=== PATIENT | female | born 1965 | race Hispanic/Latino ===

== ENCOUNTER 2020-08-17 12:11 | Outpatient (CLI) | payer OTHER, SELFPAY ==
--- NOTE | 2020-08-17 13:18 | ECG_ITS ---
Measurements Intervals [place] Rate: 71 P: 56 MI: 178 QRS: 12 QRSD: 76 T: 19 QT: 383 QTc: 418 Interpretive Statements SINUS RHYTHM WITH SINUS ARRHYTHMIA DELAYED PRECORDIAL R/S TRANSITION BORDERLINE ST-T WAVE ABNORMALITY- INFERIOR LEADS BORDERLINE ECG Electronically Signed On 08-17-2020 13:44:23 [employer] by Nitin Wood D.O.
[2020-08-17 14:20] LABS: Basophils Percent Auto 0.5 % (0.2-1.2); Eosinophils Absolute Auto 0.1 K/mm3 (0-0.3); Eosinophils Percent Auto 1.2 % (0-4.4); Hemoglobin 15.2 g/dL (12.0-15.0); Immature Granulocyte Absolute 0.02 K/mm3 (0.00-0.031); Immature Granulocyte Percent A 0.3 % (0-0.5); Lymphocytes Absolute Auto 3.17 K/mm3 (0.9-3.2); Lymphocytes Percent Auto 41.5 % (18.3-44.2); Mean Corpuscular HGB Conc 33.8 g/dl (32-36); Mean Corpuscular Hemoglobin 31.3 pg (26-34); Mean Corpuscular Volume 92.6 fl (80-100); Mean Platelet Volume 9.3 fl (7.4-10.4); Monocytes Absolute Auto 0.5 K/mm3 (0.1-0.6); Monocytes Percent Auto 6.2 % (2.6-8.5); Neutrophils Absolute Auto 3.9 K/mm3 (1.3-6.7); Neutrophils Percent Auto 50.3 % (45.5-73.1); Platelet Count Result 326 k/mm3 (150-375); Red Blood Count 4.86 M/mm3 (4.2-5.4); Red Cell Distribution Width 12.4 % (11.5-14.5); White Blood Count 7.6 K/mm3 (4.5-10.0)
[2020-08-17 14:26] LABS: INR 0.9; Partial Thromboplastin Time 24.8 SECONDS (22.3-36.8); Prothrombin Time 13.1 Seconds (11.1-14.7)
[2020-08-17 14:36] LABS: Alanine Aminotransferase 17 U/L (4-35); Albumin Level 4.6 g/dL (3.5-5.1); Alkaline Phosphatase 90 U/L (38-126); Anion Gap 9 mmol/L (8-16); Aspartate Amino Transferase 28 U/L (14-36); Bilirubin,Total 0.4 mg/dL (0.2-1.3); Blood Urea Nitrogen 19 mg/dL (7-17); Calcium 10.1 mg/dL (8.4-10.2); Carbon Dioxide 31 mmol/L (22-30); Chloride 97 mmol/L (98-107); Estimated Glomerular Filt Rate > 60; Glucose 108 mg/dL (65-105); Potassium 3.8 mmol/L (3.4-5.0); Sodium 137 mmol/L (137-145)
== END 2020-08-17 12:12 | disposition home or self-care (01) ==
PROVIDERS: PCP Family Medicine; Visit Provider Urology
DX: Z01.812 Encounter for preprocedural laboratory examination (principal); I10 Essential (primary) hypertension
CPT/HCPCS: 36415; 80053; 85025; 85610; 85730; 86850; 86900; 86901; 87086; 93005

== ENCOUNTER 2020-10-31 09:24 | Outpatient (CLI) | payer BC, SELFPAY ==
[2020-10-31 09:47] LABS: Basophils Percent Auto 0.5 % (0.2-1.2); Eosinophils Absolute Auto 0.1 K/mm3 (0-0.3); Hematocrit 44.7 % (37.0-47.0); Hemoglobin 14.6 g/dL (12.0-15.0); Immature Granulocyte Absolute 0.03 K/mm3 (0.00-0.031); Immature Granulocyte Percent A 0.5 % (0-0.5); Lymphocytes Absolute Auto 2.87 K/mm3 (0.9-3.2); Lymphocytes Percent Auto 44.9 % (18.3-44.2); Mean Corpuscular HGB Conc 32.7 g/dl (32-36); Mean Corpuscular Hemoglobin 31.3 pg (26-34); Mean Corpuscular Volume 95.7 fl (80-100); Mean Platelet Volume 9.2 fl (7.4-10.4); Monocytes Absolute Auto 0.5 K/mm3 (0.1-0.6); Monocytes Percent Auto 7.5 % (2.6-8.5); Neutrophils Absolute Auto 2.9 K/mm3 (1.3-6.7); Neutrophils Percent Auto 44.6 % (45.5-73.1); Platelet Count Result 273 k/mm3 (150-375); Red Blood Count 4.67 M/mm3 (4.2-5.4); Red Cell Distribution Width 12.5 % (11.5-14.5); White Blood Count 6.4 K/mm3 (4.5-10.0)
[2020-10-31 09:57] LABS: INR 0.9
[2020-10-31 09:58] LABS: Partial Thromboplastin Time 24.9 SECONDS (22.3-36.8)
[2020-10-31 09:59] LABS: Alanine Aminotransferase 20 U/L (4-35); Albumin Level 4.4 g/dL (3.5-5.1); Alkaline Phosphatase 80 U/L (38-126); Anion Gap 5 mmol/L (8-16); Aspartate Amino Transferase 24 U/L (14-36); Bilirubin,Total 0.4 mg/dL (0.2-1.3); Blood Urea Nitrogen 23 mg/dL (7-17); Calcium 9.7 mg/dL (8.4-10.2); Carbon Dioxide 30 mmol/L (22-30); Chloride 101 mmol/L (98-107); Estimated Glomerular Filt Rate > 60; Glucose 98 mg/dL (65-105); Potassium 3.7 mmol/L (3.4-5.0); Sodium 136 mmol/L (137-145)
== END 2020-10-31 09:25 | disposition home or self-care (01) ==
PROVIDERS: PCP Family Medicine; Visit Provider Urology
DX: N81.4 Uterovaginal prolapse, unspecified (principal); Z01.818 Encounter for other preprocedural examination
CPT/HCPCS: 36415; 80053; 85025; 85610; 85730; 86850; 86900; 86901; 87086; 87088

== ENCOUNTER → 2020-11-04 00:07 | Outpatient (CLI) | payer BC, SELFPAY ==
[2020-11-04 17:44] LABS: SARS-CoV-2 RNA PCR Negative
== END ==
PROVIDERS: PCP Family Medicine; Visit Provider Urology
DX: Z01.812 Encounter for preprocedural laboratory examination (principal); Z20.822 Contact with and (suspected) exposure to COVID-19
CPT/HCPCS: C9803; U0003; U0005

== ENCOUNTER 2020-11-07 01:02 | Day surgery (SDC) | payer BC, SELFPAY ==
[2020-08-17 12:33] VITALS: BMI 27.8
[2020-08-17 13:17] VITALS: BP 133/84; PULSE 81; RESP 16; TEMP 37.2; O2SAT 99
[2020-10-28 09:02] VITALS: BMI 27.6
--- NOTE | 2020-10-28 09:02 | PC.NURSE ---
Pt states no change in health history since interview. Vitamin C added to home medications. New instructions given, including times, medications, Covid testing, and pre-op labs. Pt denies questions at this time.
--- NOTE | 2020-11-04 17:55 | P.HP_ITS ---
H&P: HPI History of Present Illness Date/Time: 11/04/20 17:55 55yo with uterine prolapse and occult TIANNA Chief Complaint: POP/TIANNA Review of Systems Review of Systems: All systems reviewed & are unremarkable except as noted in HPI and below [facility] Family History Family History (Updated 11/04/20 @ 17:[address] MD) Other Heart disease Social History Social History Smoking status: Never smoker Alcohol intake: former Substance use: never Additional living arrangements comments: Spiritual care concerns: No Meds Home Medications and Allergies Home Medications Medication Instructions Recorded Confirmed Type hydrochlorothiazide 25 mg PO QAM 08/17/20 10/28/20 History lisinopril 10 mg PO QAM 08/17/20 10/28/20 History simvastatin 20 mg PO HS 08/17/20 10/28/20 History ascorbic acid (vitamin C) [Vitamin 300 mg PO DAILY 10/28/20 10/28/20 History C] Allergies Allergy/AdvReac Type Severity Reaction Status Date / Time No Known Allergies Allergy Verified 10/28/20 08:59 Exam Const: General: cooperative and healthy appearing HENMT: Head: normal to inspection Ears: hearing grossly normal bilaterally Eyes: General: appearance normal, both eyes and all related structures Resp: Effort & Inspection: normal respiratory effort and able to speak in complete sentences : Bimanual Exam- Adnexa, other: vaginal apex descent (+5) Skin: General skin exam: normal color Neuro: General: patient oriented x3 Assessment and Plan Assessment and plan (1) Uterine prolapse: Code(s): N81.4 - Uterovaginal prolapse, unspecified Status: Acute Assessment and Plan: robotic Sacral Colpopey (2) TIANNA (stress urinary incontinence, female): Code(s): N39.3 - Stress incontinence (female) (male) Status: Acute Assessment and Plan: urethral sling
[2020-11-07] VITALS (13 sets, daily range): BP systolic 99–142; BP diastolic 60–87; PULSE 58–86; RESP 12–20; TEMP 36.3–37; O2SAT 97–100
--- NOTE | 2020-11-07 07:20 | WPDHPUPDATE1 ---
History and Physical Update Update Date/Time: 11/07/20 07:20 History and Physical has been reviewed, including an updated exam of the patient. There are NO changes in the patient's condition. Risks, benefits, and alternatives have been discussed and questions answered. Patient agrees to proceed with procedure.
[2020-11-07] MEDS: LACTATED RINGERS 1,000 ML 30 ML IV CONT ×3 (10:06→14:51)
[2020-11-07] MEDS: KETOROLAC 15 MG/ML VIAL (*BKC) IV PUSH (10:06)
[2020-11-07] MEDS: ACETAMINOPHEN 500 MG TABLET 1000 MG PO (10:06)
--- NOTE | 2020-11-07 10:29 | WPDANESEPPF ---
Anes - Initial Pre Proc Eval Procedure: Operation Date: 11/07/20 11:00 Proposed Procedures p Robotic Sacrocolpopexy - Moises Lane MD s Urethral Sling - Moises Lane MD s Laparoscopic Supracervical Hysterectomy With Bilateral Salpingo-Oophorectomy - Haily Noriega MD Date/Time: 11/07/20 10:29 Surgeon: Moises Lane MD Pre Op Diagnosis: Cystocele,Complete UterineVaginal Prolapse, Stress Patient Data Age: 55 Gender: F Height: 4 ft 11 in Weight: 62.3 kg Last Vital Signs Temp 37.0 C 11/07/20 10:00 Pulse 79 11/07/20 10:00 Resp 20 11/07/20 10:00 BP 129/87 11/07/20 10:00 Pulse Ox 100 11/07/20 10:00 Allergies Allergy/AdvReac Type Severity Reaction Status Date / Time No Known Allergies Allergy Verified 11/07/20 10:11 Home Medications Medication Instructions Recorded Confirmed Type hydrochlorothiazide 25 mg PO QAM 08/17/20 11/07/20 History lisinopril 10 mg PO QAM 08/17/20 11/07/20 History simvastatin 20 mg PO HS 08/17/20 11/07/20 History ascorbic acid (vitamin C) [Vitamin 300 mg PO DAILY 10/28/20 11/07/20 History C] Patient hx anesthesia problems: post op nausea/vomiting Family hx anesthesia problems: none PMFSH Past Medical History Medical History HTN (hypertension) Hyperlipidemia Family History Family History Other Heart disease Social History Social History Smoking status: Never smoker Alcohol intake: former Alcohol use details: DRANK SOCIALLY YEARS AGO Substance use: never Living arrangements: with family Additional living arrangements comments: Spiritual care concerns: No Anes - Eval Final PreProcedure Day of Procedure 11/07/20 10:29 Patient weight: overweight Heart: regular rate and rhythm Lungs: clear to auscultation Airway: Mallampati scale class II Neurological: alert and oriented Last oral intake: >/= 8 hours ASA classification: II Emergent: no Anesthetic plan: proceed Anesthesia type and monitoring: general ETT and standard monitoring Informed Consent: The patient's anesthetic plan and its attendant risks and benefits were discussed with the patient/family/POA. Questions were solicited and answers provided to the satisfaction of the patient/family/POA.
[2020-11-07] MEDS: SCOPOLAMINE 1.5 MG PATCH TRANSDERM (10:35)
--- NOTE | 2020-11-07 11:05 | WPDHPUPDATE1 ---
History and Physical Update Update Date/Time: 11/07/20 11:05 History and Physical has been reviewed, including an updated exam of the patient. There are NO changes in the patient's condition. Risks, benefits, and alternatives have been discussed and questions answered. Patient agrees to proceed with procedure.
--- NOTE | 2020-11-07 11:13 | PM.IMHP ---
H&P: HPI History of Present Illness Date/Time: 11/07/20 11:13 this patient is a 55-year-old female with pelvic organ prolapse. Dr. Lane is to perform robotic sacrocolpopexy. We have agreed to perform total laparoscopic hysterectomy and bilateral salpingo-oophorectomy to facilitate the effectiveness and longevity of the sacrocolpopexy. Patient understands the risks. She understands that injuries may occur. She understands that injuries could result in hospitalization, more surgery, and severe illness. She understands the risk of hemorrhage and infection. Chief Complaint: Pelvic organ prolapse Review of Systems Constitutional: Constitutional: Reports no additional constitutional complaints, Denies fatigue, Denies headache(s), Denies lethargy and Denies weakness Eyes: Eyes: Reports no additional eye complaints, Denies blurry vision and Denies photophobia ENT: Reports as per HPI, Denies headache(s) and Denies neck pain Cardiovascular: Cardiovascular: Denies chest pain, Denies diaphoresis, Denies leg edema, Denies palpitations and Denies dyspnea Respiratory: Respiratory: Denies hemoptysis, Denies dyspnea and Denies wheezing Gastrointestinal: Gastrointestinal: Denies abdominal pain, Denies melena, Denies bloating, Denies hematochezia, Denies nausea and Denies vomiting Genitourinary: Genitourinary: Reports no additional female genitourinary complaints Musculoskeletal: Musculoskeletal: Denies joint swelling, Denies neck pain, Denies numbness and Denies stiffness Neurologic: Denies Abnormal speech present, Denies confusion, Denies headache(s), Denies numbness and Denies weakness Psychiatric: Psychiatric: Denies anxiety, Denies confusion, Denies depression, Denies homicidal ideation and Denies suicidal ideation Endocrine: Endocrine: Denies fatigue and Denies palpitations Allergic/Immunologic: Allergic/Immunologic: Denies wheezing PMFSH Past Medical History Medical History HTN (hypertension) Hyperlipidemia Family History Family History Other Heart disease Social History Social History Smoking status: Never smoker Alcohol intake: former Alcohol use details: DRANK SOCIALLY YEARS AGO Substance use: never Living arrangements: with family Additional living arrangements comments: Spiritual care concerns: No Meds Home Medications and Allergies Home Medications Medication Instructions Recorded Confirmed Type hydrochlorothiazide 25 mg PO QAM 08/17/20 11/07/20 History lisinopril 10 mg PO QAM 08/17/20 11/07/20 History simvastatin 20 mg PO HS 08/17/20 11/07/20 History ascorbic acid (vitamin C) [Vitamin 300 mg PO DAILY 10/28/20 11/07/20 History C] Allergies Allergy/AdvReac Type Severity Reaction Status Date / Time No Known Allergies Allergy Verified 11/07/20 10:11 Vital Signs Vital Signs - 24 hr 11/07/20 10:00 Temperature 98.6 F Pulse Rate 79 Respiratory Rate 20 Blood Pressure 129/87 Pulse Oximetry 100 Exam Const: General: healthy appearing, comfortable and no acute distress; No confusion Orientation/consciousness: No confusion Eyes: Direct Ophthalmoscopy: No photophobia Resp: Auscultation: clear to auscultation bilaterally, no rales, no rhonchi and no wheezes Cardio: Rate: regular rate Heart sounds: no click, no murmurs and no rubs GI: Inspection: non-distended GI Palp: No abdominal tenderness Auscultation: normal bowel sounds Neuro: General: No confusion Speech: No Abnormal speech present Extrem: General: normal to inspection, no pedal edema and no calf tenderness Assessment and Plan Assessment and plan (1) Uterine prolapse: Code(s): N81.4 - Uterovaginal prolapse, unspecified Status: Acute Assessment and Plan: This patient is a 55-year-old female with pe
[2020-11-07] MEDS: metroNIDAZOLE 500 MG/ISO 100ML 500 MG/100 ML BAG 100 MG IVPB (11:16)
[2020-11-07] MEDS: ceFAZolin 2 GM/D5W 50 ML 2 GM/50 ML BAG IVPB (11:27)
--- NOTE | 2020-11-07 12:33 | PM.PROC ---
Procedure Note - Detailed Date of procedure: 11/07/20 Pre-op diagnosis: Cystocele,Complete UterineVaginal Prolapse, Stress Post-op diagnosis: same Procedure performed: Laparoscopic supracervical hysterectomy with bilateral salpingo oophorectomy. Description of procedure: The trocars were placed by Dr. Lane. An additional trocars placed in the left lower quadrant trocar site. A 5 mm trocar placed through a 5 mm skin incision made with a scalpel. It was done under direct visualization of the scope. The ureters were identified bilaterally after the patient was placed in a Trendelenburg position. The infundibulopelvic ligaments were isolated, cauterized and transected with LigaSure cautery in the area of the ovary. Moving around the ovary, in a bilateral fashion, the para ovarian tissue was cauterized, transected with LigaSure. The round ligament was cauterized and transected with LigaSure cautery. This was done in a bilateral fashion. The broad ligament was cauterized and transected in a stepwise fashion down to the uterine arteries. This was done in a bilateral fashion as well. The superior branches of the uterine artery were cauterized and transected with LigaSure cautery. Cervix was then transected in the upper 3rd of the body of the cervix using monopolar cautery. The uterus was placed in endobag and sent off to the side in the abdomen. Anesthesia: GETA Surgeon: Haily Noriega MD Estimated blood loss (mL): 20 Drains: No Packing: No Pathology: yes Complications: No immediate complications Condition: stable Disposition: PACU Findings: Atrophic uterus and ovaries. Normal appearing fallopian tubes. The ureters were clearly identified.
--- NOTE | 2020-11-07 12:38 | SUR.OPER ---
SACROCOLPOPEXY MESH INSERTED 1233 LOT [id number], EXP 2023-10-09.
[2020-11-07] MEDS: BUPIVACAINE/EPINEPHRINE 0.25% 50 ML VIAL 15 ML INFILTRATE (13:48)
--- NOTE | 2020-11-07 13:51 | SUR.OPER ---
LAYLA WHITESIDE SS EXP , LOT [id number] VAGINAL SLING
--- NOTE | 2020-11-07 14:26 | PM.PROC ---
Procedure Note - Detailed Date of procedure: 11/07/20 Pre-op diagnosis: Cystocele,Complete UterineVaginal Prolapse, Stress Uterine prolapse Female perineal laxity Stress urinary incontinence Post-op diagnosis: same Procedure performed: Robotic assisted laparoscopic sacral colpopexy Perineoplasty Mid urethral sling Cystoscopy Description of procedure: She understood the risks of bleeding, infection, damage to surrounding organs, bowel injury, bowel obstruction, recurrence of prolapse, persistent or recurrent stress incontinence, mesh related complications including exposure and extrusion, diskitis, postoperative voiding dysfunction including incontinence and retention, hip and leg pain, dyspareunia, and she agrees to proceed. She was correctly identified and informed consent was obtained. She was brought to the operating room. She was given general anesthesia. She was placed in the dorsal lithotomy position. All pressure points were padded. She was given appropriate perioperative antibiotics. Time-out performed. I anesthetized the skin 3 fingerbreadths cephalad to the umbilicus. I incised the skin. I dissected down to locate the fascia. I grasped the fascia with Anita clamps. I entered the fascia sharply. I placed Vicryl sutures for later fascial closure. I placed a midline trocar. Under direct vision 2 additional trocars were placed on the right and left upper quadrant. She was placed in steep Trendelenburg. Her mental health worker performed the portion of the procedure and left the specimen and a sac which was extracted. I then docked the robot. I then sat at the console. With the Sizer in the vagina I created a plane on the anterior and posterior vaginal wall. This was done for several cm taking great care not to injure the vagina, bladder, or rectum. I introduced the mesh into the abdomen. I sewed the anterior leaflet of mesh on the anterior vaginal wall and posterior leaf of the mesh on the posterior vaginal wall with several [place] sutures taking great care not to go through and through. I then reflected the colon laterally. I opened up the posterior peritoneum over the sacral promontory. I carried this into the cul-de-sac. I kept the ureters lateral. I freed up the edges. I located the anterior longitudinal ligament of the sacrum. I tensioned the mesh appropriately. I did a vaginal exam to ensure prolapse reduction without undue tension. I then sewed the proximal leaflet of mesh onto the ligament with 3 sutures of 2 0 [place]. Next the mass was meticulously retroperitonealized with a running 2 0 Monocryl suture. I allowed the colon to go back into its normal anatomic location. There is no signs of any impingement or stricturing. The abdomen was exited. Fascia was closed. Skin was closed with Monocryl and glue. She was repositioned and prepped for perineal surgery. She had quite a bit of perineal laxity. I curry out a bharati-shaped area of skin in the perineum. I anesthetized the skin. I removed this area of skin sharply. I then performed a perineoplasty with 0 Vicryl suture. I used a 2 0 Vicryl suture to close mucosa to mucosa. She had excellent perineal support without undue narrowing of the vagina. I turned my attention towards the urethral sling. I marked out the thigh incisions. I anesthetize the skin and made those incisions. I anesthetized the anterior vaginal wall over the mid urethra. I made a 1 cm incision. I dissected out laterally taking great care not to injure the urethra or the vaginal wall. I next passed the helical trocars to 1st on the left and then on the right. This was done from the thigh incision towards the vaginal incision. The sling was connected to the trocars and brought out through the thigh incision. I tensioned the sling appropriately. I cut and removed the plastic sheaths. I then closed the incision with 2 0 Vicryl. I then performed cystoscopy. The bladder is examined. There was no tumors, s
[2020-11-07] MEDS: PROMETHAZINE HCL 25 MG/ML AMPUL 6.25 MG IV PUSH (16:12)
[2020-11-07] MEDS: oxyCODONE HCL (*CRX) 5 MG TAB IR PO (16:15)
== END 2020-11-07 18:13 | disposition home or self-care (01) ==
PROVIDERS: Obstetrics & Gynecology; PCP Family Medicine; Visit Provider Urology
PROC: (CPT 57425; principal; 2020-11-07 11:00)
PROC: (CPT 57425; 2020-11-07 11:00)
PROC: 0UT9FZZ Resection of Uterus, Via Natural or Artificial Opening With Percutaneous Endoscopic Assistance (ICD-10-PCS; CPT 58542; 2020-11-07 11:00)
DX: N18.4 Chronic kidney disease, stage 4 (severe) (principal); N81.3 Complete uterovaginal prolapse; N84.0 Polyp of corpus uteri; N80.0 Endometriosis of uterus; D25.1 Intramural leiomyoma of uterus; N73.6 Female pelvic peritoneal adhesions (postinfective); N83.209 Unspecified ovarian cyst, unspecified side; N39.3 Stress incontinence (female) (male); I10 Essential (primary) hypertension; E78.5 Hyperlipidemia, unspecified
CPT/HCPCS: 58542; 57425; 57288; S2900; 88307; A9270; C1771; C1781; C9290; J0690; J1100; J1200; J1885; J2250; J2405; J2550; J2704; J2710; J3010; J7030; J7120

== ENCOUNTER 2021-12-02 08:56 | Emergency (ER) | payer OTHER, SELFPAY ==
[2021-12-02 09:09] VITALS: BP 117/78; PULSE 73; RESP 16; TEMP 37.3; O2SAT 98
--- NOTE | 2021-12-02 09:31 | ED.URI ---
HPI - URI/Sore Throat General Chief Complaint: Upper Respiratory Infection Stated Complaint: sore throat Time Seen by Provider: 12/02/21 09:18 Source: patient and RN notes reviewed Mode of arrival: ambulatory Limitations: no limitations History of Present Illness HPI Narrative: Patient presents today with a 1 week history of cough, sore throat that is worse at night and increases with swallowing, chills. Yesterday she noted redness and irritation to both eyes, right greater than left, and drainage to her eyes this morning that is green in color. Denies eye pain, vision changes, photophobia. Denies fever or shortness of breath. Patient works in the daycare. She has been taking DayQuil and NyQuil without much relief. MD elicited complaint: cough, sore throat and other (Eye redness) Related Data Home Medications Medication Instructions Recorded Confirmed hydrochlorothiazide 25 mg PO QAM 08/17/20 12/02/21 lisinopril 10 mg PO QAM 08/17/20 12/02/21 simvastatin 20 mg PO HS 08/17/20 12/02/21 Allergies Allergy/AdvReac Type Severity Reaction Status Date / Time No Known Allergies Allergy Verified 12/02/21 09:23 Review of Systems Review of Systems: CONSTITUTIONAL: Denies body aches, fever, or sweats.+ Chills EYES: Denies visual changes. + Bilateral eye redness and drainage ENT: Denies rhinorrhea, congestion, or otalgia.+ CARDIOVASCULAR: Denies chest pain, palpitations, or edema. RESPIRATORY: Denies dyspnea.+ Cough GASTROINTESTINAL: Denies abdominal pain, nausea, vomiting, or diarrhea. GENITOURINARY: Denies dysuria or hematuria. SKIN: Denies rash, itching, or wounds. MUSCULOSKELETAL: Denies back pain, joint pain, or myalgia. NEUROLOGIC: Denies headache, numbness, tingling, or weakness. PSYCH: Denies depression or anxiety. [facility] Past Medical History Medical History HTN (hypertension) Hyperlipidemia Family History Family History Other Heart disease Social History Social History Smoking status: Never smoker Alcohol intake: former Alcohol use details: DRANK SOCIALLY YEARS AGO Substance use: never Additional living arrangements comments: Spiritual care concerns: No Comments At time of signature, I have reviewed and agree with nursing past medical, surgical, social and family history unless otherwise noted. Please see nursing chart for further information. There is no relevant family history pertinent to the presenting complaint Exam Narrative: GENERAL: Well-appearing, well-nourished, and in no acute distress. HEAD: Normocephalic, atraumatic. EYES: EOMI. PERRL. Bilateral erythematous conjunctiva with scant green drainage in left medial canthus. Lids and lashes normal. ENT: Mucous membranes pink and moist. Nares congested. No rhinorrhea. TMs normal bilaterally. Throat normal. Uvula midline. NECK: Normal AROM. Supple. No lymphadenopathy. CHEST: No respiratory distress. Clear to auscultation. HEART: Regular rate and rhythm. No murmur appreciated. Normal peripheral pulses. EXTREMITIES: Normal range of motion. No edema. SKIN: Warm, dry, no rash. Capillary refill normal. Normal skin turgor. NEURO: No focal deficits. Alert and oriented x3. Gait steady. PSYCH: Normal affect. No signs of depression or anxiety. Course Course Level of Care: Express Care Visit Vital Signs Vital signs: Vital Signs Temperature 99.2 F 12/02/21 09:09 Pulse Rate 73 12/02/21 09:09 Respiratory Rate 16 12/02/21 09:09 Blood Pressure 117/78 12/02/21 09:09 Pulse Oximetry 98 12/02/21 09:09 Temperature 99.2 F 12/02/21 09:09 Pulse Rate 73 12/02/21 09:09 Respiratory Rate 16 12/02/21 09:09 Blood Pressure 117/78 12/02/21 09:09 Pulse Oximetry 98 12/02/21 09:09 Reviewed MDM - URI/Sore Throat Diff
== END 2021-12-02 10:00 | disposition home or self-care (01) ==
PROVIDERS: Emergency Provider Nurse Practitioner
DX: H10.33 Unspecified acute conjunctivitis, bilateral (principal); J06.9 Acute upper respiratory infection, unspecified; I10 Essential (primary) hypertension; E78.5 Hyperlipidemia, unspecified
CPT/HCPCS: 87081; 87880; 99213; G0463